=== PATIENT | female | born 1990 | race Caucasian/White ===

== ENCOUNTER 2018-08-22 17:16 | Emergency (ER) | payer OTHER ==
[2018-08-22 17:56] VITALS: BP 108/71
--- NOTE | 2018-08-22 18:36 | UC ---
- HPI Summary HPI Summary: 28-year-old woman comes in with a chief complaint of being stuck in the right palm with a scalpel. Patient reports she is up-to-date on her tetanus which was performed in 2016. She was at work at the [employer] [facility] [employer] and an abscess was being drained when she was stuck in the right palM with a scalpel. There was minimal bleeding. No laceration. The source patient agreed to be tested for HIV AND he reports a recent negative HIV and not being sexually active. Normally the [employer] employee would follow up with [facility] however occupational medicine was gone for the day when the accident occurred. - History of Current Complaint Chief Complaint: UCLaceration Stated Complaint: NEEDLE STICK EXPOSURE Time Seen by Provider: 08/22/18 18:16 PMH/Surg Hx/FS Hx/Imm Hx Previously Healthy: Yes - Surgical History Surgical History: Yes Surgery Procedure, Year, and Place: wisdom tooth removal - Family History Known Family History: Positive: Diabetes - Social History Alcohol Use: Occasionally Substance Use Type: None Smoking Status (MU): Never Smoked Tobacco Review of Systems All Other Systems Reviewed And Are Negative: Yes Constitutional: Positive: Negative Skin: Positive: Other - SEE HPI Eyes: Positive: Negative ENT: Positive: Negative Respiratory: Positive: Negative Cardiovascular: Positive: Negative Gastrointestinal: Positive: Negative Motor: Positive: Negative Neurovascular: Positive: Negative Musculoskeletal: Positive: Negative Neurological: Positive: Negative Psychological: Positive: Negative Is Patient Immunocompromised?: No Physical Exam Triage Information Reviewed: Yes Appearance: Well-Appearing, No Pain Distress, Well-Nourished Vital Signs: Initial Vital Signs Temp 98.1 F 08/22/18 17:51 Pulse 73 08/22/18 17:51 Resp 18 08/22/18 17:51 BP 108/71 08/22/18 17:51 Pulse Ox 99 08/22/18 17:51 Eye Exam: Normal Eyes: Positive: Conjunctiva Clear Neck exam: Normal Neck: Positive: Supple Respiratory: Positive: No respiratory distress Musculoskeletal Exam: Normal Musculoskeletal: Positive: Strength Intact, ROM Intact Neurological Exam: Normal Neurological: Positive: Alert, Muscle Tone Normal Psychological Exam: Normal Psychological: Positive: Age Appropriate Behavior Skin: Positive: Other - On the right palm over the distal second metacarpal there is a pinpoint area of redness that is nontender to palpation at the patient identifies as the site of the stick. There is no streaking there is no drainage there is no bleeding. Needlestick Course/Dx - Course Course Of Treatment: With the source patient being tested for HIV and also him being low risk no HIV prophylaxis at this time. We are starting clindamycin as were not sure of the bacteria involved in the abscess drainage. Patient will be following up with occupational medicine at [employer]. - Diagnoses Provider Diagnoses: Needle exposure Discharge - Sign-Out/Discharge Documenting (check all that apply): Patient Departure All imaging exams completed and their final reports reviewed: No Studies - Discharge Plan Condition: Stable Disposition: HOME Prescriptions: Clindamycin Cap(NF) [Clindamycin Cap 300 mg Cap(NF)] 300 mg PO Q6H #40 cap Patient Education Materials: Needle Stick Injuries (ED), Body Substance Exposure (ED) Referrals: [facility] [Provider Group] Additional Instructions: FOLLOW UP WITH [facility]. GET RECHECKED SOONER FOR ANY WORSENING OF YOUR CONDITION OR QUESTIONS OR CONCERNS. - Billing Disposition and Condition Condition: STABLE Disposition: Home
== END 2018-08-22 18:53 | disposition home or self-care (01) ==
LOC: UCEAST 17:16
DX: Z77.21 Contact with and (suspected) exposure to potentially hazardous body fluids (principal); W46.1XXA Contact with contaminated hypodermic needle, initial encounter; Y92.9 Unspecified place or not applicable
CPT/HCPCS: 36415; 86703; 86706; 86803; 87340; 99212; G0463

== ENCOUNTER 2019-06-19 11:09 | Inpatient (IN) | payer OTHER, MEDICAID ==
[2019-06-19 12:25] LABS: Urine Benzodiazepine Screen None Detected (None Detect); Urine Opiates Screen None Detected (None Detect)
--- NOTE | 2019-06-19 13:01 | HP ---
General Information - Reason for Visit IUP at 40-2/7 with prelabor rupture of membranes - General Information Maternal Age: 28 Grav: 3 Para: 1 SAB: 0 IEA: 1 Estimated Due Date: 06/17/19 Determined By: LMP Gestational Age in Weeks/Days: 40-2/7 Maternal Blood Type and Rh: O Positive - Results this Serology/RPR Result: Non-Reactive Rubella Result: Non-Immune HBsAg Result: Negative HIV Result: Negative GBS Culture Result: Negative Past Medical History Delivery History: Hx Uncomplicated Vaginal Delivery Delivery History Comment: 03/2016 6lbs 14oz male Pertinent Past Medical History: Non-Contributory Pertinent Past Surgical History: See Records Past Surgical History Comment: 2009 [place] tooth extraction Pertinent Family History: See Records Family History Comment: Father: ETOH abuse Mother: , colon cancer Brother 1: , lymphoma Brother 2: HTN PGM: Lymphoma. , old age PGF: , prostate cancer MGM: CHF, DM, Kidney disease. , ulcer MGF: Decased, throat cancer - Antepartal Records Antepartal Records: Reviewed, Complicated by: - Obesity. TWG 28lbs. Rubella non-immune Review of Systems Constitutional: Comfortable CV Complaint: No Respiratory: Shortness of Breath: No Gastrointestinal: No Nausea/Vomiting, Normal Bowel Movement Genitourinary: Leaking Fluid, No Dysuria, No Bleeding - starting at 1000 Musculoskeletal: No Complaint, No Epigastric Pain Neurological: No Headache, No Visual Changes Movement: Normal Exam Allergies/Adverse Reactions: Allergies No Known Allergies Allergy (Verified 08/22/18 17:55) BP 130/86 repeat 124/80 HR 91 T 97.9 RR 20 Lab Values - Entire Visit: Laboratory Tests 06/19/19 06/19/19 11:55 11:55 Vag Amniotic Fld Detect Positive Urine Opiates Screen None detected Ur Barbiturates Screen None detected Ur Phencyclidine Scrn None detected Ur Amphetamines Screen None detected U Benzodiazepines Scrn None detected Urine Cocaine Screen None detected U Cannabinoids Screen None detected - Measurements Height: 5 ft 6.5 in Weight: 231 lb Weight in lbs: 231.731289 Body Mass Index (BMI): 36.7 Pre- Weight: 204 lb Weight Gained This : 31 lbs and 0 ozs - Exam Breast: Breast Exam Deferred CVA: No CVA Tenderness Extremities: No Edema Heart: Normal Rhythm/Heart Sounds HEENT: No Significant Findings Lungs: Clear Bilaterally Rectal: Rectal Exam Deferred Reflexes: DTR 2+ Thyroid: No Thyromegaly - Abdominal Exam Abdomen Exam: Non-Tender - Ultrasound/Biophysical Profile Ultrasound Status: Not Done Targeted Exam Findings See L&D Outpatient Visit Provider Note for Findings: N/A Estimated Weight: 7lbs by Ronn Cervical Exam: 1cm Effacement: Thick Station: -1 Presenting Part: Vertex Membrane Status: Leaking Amniotic Fluid Evaluation: Positive ROM Plus, Clear Sterile Speculum Exam: Not done Bleeding/Discharge: None EFM Findings - External Monitor Findings Baseline Heart Rate: 125 External Monitor Findings: Accelerations Present, No Pattern of Variable or Late Decelerations, Variability Moderate, Baseline Stable External Monitor Findings Comment: No evidence of metabolic acidemia Contractions: Irregular, Mild Assessment/Plan - Assessment IUP at 40-2/7 with prelabor rupture of membranes No evidence of metabolic acidemia - Obstetrical Risk Factors Obstetrical Risk Factors: Obesity - Plan Plan: Observe Plan Comment: Pt's boyfriend on his way to [facility] [place]. Pt prefers to wait for his arrival before discussing augmentation options. Will continue to monitor for now. - Date/Time of Admission Date of Admission: 06/19/19 Time of Admission: 12:45
--- NOTE | 2019-06-19 15:26 | PN ---
Progress Note - Progress Note Date of Service: 06/19/19 Note: Quick Note: Pt's boyfriend has arrived. She reports starting to feel some uterine cramping and tightening. Would like to try walking for now. Will continue to monitor.
[2019-06-19] MEDS ORDERED: Misoprostol TAB* 100 MCG PO ONE (20:18)
--- NOTE | 2019-06-19 20:23 | PN ---
Progress Note - Progress Note Date of Service: 06/19/19 Note: S: Pt comfortably resting in bed. FOB at bedside and supportive. Using aromatherapy. Reports some stronger UCs q 10-15 min but nothing regular. Some pink tinged mucus type discharge on pad or when up to bathroom. Continues to leak clear fluid O: BP 123/77 HR 90bpm RR 18 T 98.3 FHT 130bpm. Moderate variability. +Accels. No decels. Difficult to trace during periods of increased FM UCs mild, irregular. Q 10-15 min by pt report VE: 2cm/50%/vtx -2 A: IUP at 40-2/7 with prelabor rupture of membranes in latent labor No evidence of metabolic acidemia P: Recommend augmentation given PROM x 10 hours. Pt with strong preference to avoid IV pitocin if possible. PARQ sublingual misoprostol. Pt and FOB agree.
--- NOTE | 2019-06-20 01:14 | PN ---
Progress Note - Progress Note Date of Service: 06/20/19 Note: S: Pt reports UCs q few min, breathes with them. Described as short, no more then 30sec. Heat packs to low back helping O: BP 123/77 HR 90 T 97.6 FHT 135bpm. Moderate variability. +Accels. No decels UCs q 1-3, mild-moderate VE deferred in presence of PROM A: IUP at 40-3/7 with PROM in latent labor No evidence of metabolic acidemia P: Pt still hoping to avoid/delay IV Pitocin as long as possible. Will continue to monitor over the next 2 hours at which time will discuss appropriateness of repeat misoprostol vs. IV pitocin. Pt agrees.
--- NOTE | 2019-06-20 03:21 | PN ---
Progress Note - Progress Note Date of Service: 06/20/19 Note: S: Pt increasingly uncomfortable with UCs. Breathing through them. Had some relief in the shower but now more uncomfortable. Questions about timing of CEI placement if desired (although she's hoping to avoid). FOB remains at bedside. O: BP 138/95 HR 109 T 98.1 FHT 135bpm. Moderate variability. +Accels. No decels UCs q 2-4 min VE posterior 4cm/60%/vtx -1 A: IUP at 40-3/7 in early active labor No evidence of metabolic acidemia P: Bedside support provided. Given increasing strength of UCs will continue expectant management at this time. Reviewed CEI timing, need for IV and labs prior to placement. Pt declines at this time.
[2019-06-20] MEDS ORDERED: Lactated Ringers 1000 ML Bag* 1,000 ML IV SCH ×3 (05:00→09:00)
[2019-06-20 05:01] LABS: Hematocrit 40 % (35-47); Hemoglobin 13.7 g/dL (12.0-16.0); Mean Corpuscular HGB Conc 34 g/dL (31-36); Mean Corpuscular Hemoglobin 31 pg (27-31); Mean Corpuscular Volume 90 fL (80-97); Mean Platelet Volume 9.5 fL (7.4-10.4); Platelet Count 264 10^3/uL (150-450); Red Blood Count 4.47 10^6 /uL (3.70-4.87); Red Cell Distribution Width 16 % (10-15); White Blood Count 24.3 10^3/uL (3.5-10.8)
[2019-06-20] MEDS ORDERED: Bupivacaine 0.25% SDV PF* 10 ML VIAL INJ ONE (05:16)
[2019-06-20] MEDS ORDERED: OBEPIDURAL* 250 ML EPIDURAL ONE (05:18)
[2019-06-20 05:38] LABS: ABS Basophils 0.1 10^3/ul (0-0.2); ABS Lymphocytes 1.6 10^3/ul (1.0-4.8); ABS Monocytes 1.1 10^3/ul (0-0.8); ABS Neutrophils 21.6 10^3/ul (1.5-7.7); Eosinophil % 0.1 %; Lymphocyte % 6.4 %
[2019-06-20] MEDS ORDERED: EPHEDrine (Pressors)* 50 MG/ML VIAL IV PUSH PRN (05:39)
[2019-06-20] MEDS ORDERED: Sodium Citrate/Citric Acid* 15 ML UDC PO PRN (05:39)
[2019-06-20] MEDS ORDERED: Lactated Ringers 1000 ML Bag* 1,000 ML IV ONE (05:39)
[2019-06-20] MEDS ORDERED: Phenylephrine 40 MCG/ML SYRINGE IV PUSH PRN (05:39)
[2019-06-20] MEDS ORDERED: Famotidine TAB* 20 MG PO PRN (05:39)
[2019-06-20] MEDS ORDERED: OBEPIDURAL* 250 ML EPIDURAL SCH (06:00)
[2019-06-20] MEDS ORDERED: Measles, Mumps,Rubella VACC* 0.5 ML/VIAL SUBCUT ONE (08:44)
[2019-06-20] MEDS ORDERED: Witch Hazel PAD* JAR TOPICAL PRN (08:44)
[2019-06-20] MEDS ORDERED: Acetaminophen TAB* 325 MG PO PRN (08:44)
[2019-06-20] MEDS ORDERED: Dibucaine 1% 28.35 GM TUBE PR PRN (08:44)
[2019-06-20] MEDS ORDERED: Glycerin ADULT SUPP PR PRN (08:44)
--- NOTE | 2019-06-20 08:50 | PROCNOTE ---
[facility] OB: Delivery Note - Delivery A Date of : 06/20/19 Time of : 06:27 Hazen Sex: Female - "Griselda" Hazen Weight at : 7 lb 13 oz Score 1 Minute: 9 Score 5 Minutes: 9 Gestational Age in Weeks and Days at Delivery: 40 Weeks and 3 Days Delivery Method: Spontaneous Vaginal Labor: Spontaneous Did Patient attempt ?: N/A, No Previous Amniotic Fluid: Clear Estimated Blood Loss: 300 Anesthesia/Analgesia: CEI for Labor - placed by Dr. Lo Delivered By: Joao Andrews - Nursery Level of Nursery: Regular/Bedside - Perineum Perineal Injury: 2nd Degree - repaired with 3-0 Rapide under epidural analgesia. Pt tolerated well. Perineal Repair: By Delivering Practioner - Additional Delivery Notes Additional Delivery Notes: Pt admitted with pre-labor rupture of membranes at term. After 10 hours of expectant management agreed to sublingual Cytotec which led to onset active labor with expected progression to complete. Length of active phase 3 hours, 34 min. Pushed x 24 min. liveborn female. Slow, controlled delivery of head. OA to LOP. Hazen vigorous with spontaneous cry. HR>110bpm. Delivered to maternal abdomen. Apgars 9/9. Cord clamped x 2 and cut by FOB when pulsations ceased. Spontaneous delivery intact placenta. Membranes complete. Fundus firm to massage with minimal bleeding noted. Repair as above. EBL 300mL. At time of note mother and infant in stable condition. Breast feeding initiated
[2019-06-20] MEDS: Docusate CAP* 100 MG PO SCH ×3 (11:39→21:29)
[2019-06-20] MEDS: Ibuprofen TAB* 600 MG PO SCH ×2 (12:25→21:32)
[2019-06-20] MEDS ORDERED: Simethicone TAB* 80 MG TAB.CHEW PO SCH (12:30)
[2019-06-21] MEDS: Ibuprofen TAB* 600 MG PO SCH ×2 (03:57→13:16)
[2019-06-21 08:29] LABS: ABS Basophils 0.1 10^3/ul (0-0.2); ABS Eosinophils 0.1 10^3/ul (0-0.6); ABS Lymphocytes 3.4 10^3/ul (1.0-4.8); ABS Monocytes 1.1 10^3/ul (0-0.8); ABS Neutrophils 11.4 10^3/ul (1.5-7.7); Eosinophil % 0.9 %; Hematocrit 36 % (35-47); Lymphocyte % 20.9 %; Mean Corpuscular HGB Conc 33 g/dL (31-36); Mean Corpuscular Hemoglobin 30 pg (27-31); Mean Corpuscular Volume 91 fL (80-97); Mean Platelet Volume 9.2 fL (7.4-10.4); Platelet Count 218 10^3/uL (150-450); Red Blood Count 3.94 10^6 /uL (3.70-4.87); Red Cell Distribution Width 16 % (10-15); White Blood Count 16.2 10^3/uL (3.5-10.8)
[2019-06-21] MEDS ORDERED: Ferrous Gluconate TAB* 324 MG TAB PO SCH (09:00)
[2019-06-21 10:37] VITALS: BP 103/61
== END 2019-06-21 13:08 | disposition home or self-care (01) | DRG 807 ==
LOC: MCHOBOUT 11:09 → MCHOB 12:49
PROVIDERS: ADMIT Midwife; ATTEND Midwife
PROC: 10E0XZZ Delivery of Products of Conception, External Approach (ICD-10-PCS; principal; 2019-06-20)
PROC: 0KQM0ZZ Repair Perineum Muscle, Open Approach (ICD-10-PCS; 2019-06-20)
DX: O48.0 Post-term pregnancy (principal); Z37.0 Single live birth; O70.1 Second degree perineal laceration during delivery; O99.214 Obesity complicating childbirth; Z3A.40 40 weeks gestation of pregnancy
CPT/HCPCS: 36415; 80307; 84112; 85025; 86850; 86900; 86901; 90707; A9270-GY; J3490; S0191